=== PATIENT | female | born 2000 | race African-American/Black ===

== ENCOUNTER 2019-01-22 11:10 | Emergency (ER) | payer OTHER ==
[~2019-01-22] VITALS: Ht 170.2 cm; Wt 81.6 kg
[2019-01-22 11:14] VITALS: Ht 170.2 cm; Wt 81.6 kg
[2019-01-22] MEDS ORDERED: DEPAKOTE ER250 M1 PO (11:55)
[2019-01-22] MEDS ORDERED: ADOINT (11:56)
[2019-01-22] MEDS ORDERED: SEROQUEL400 M1 PO (11:56)
[2019-01-22 11:58] LABS: ALBUMIN 3.8 g/dL (3.4-5.0); ALKALINE PHOSPHATASE 79 U/L (46-116); ALT/SGPT 23 U/L (14-59); AST/SGOT 21 U/L (15-37); BILIRUBIN TOTAL 0.6 mg/dL (0.20-1.00); CARBON DIOXIDE 28.3 mmol/L (21-32); CHLORIDE SERUM 106 mmol/L (98-107); CREATININE SERUM 0.8 mg/dL (0.6-1.0); GFR1 > 60 mL/min; POTASSIUM SERUM 3.6 mmol/L (3.5-5.1); SODIUM SERUM 141 mmol/L (136-145); TOTAL PROTEIN, SERUM 7.7 g/dL (6.4-8.2)
[2019-01-22 12:13] LABS: CALCIUM 8.7 mg/dL (8.5-10.1); GLUCOSE SERUM 91 mg/dL (74-106)
[2019-01-22 12:32] LABS: BASOPHIL % 0.5 % (0-2); PLATELET COUNT 202 x10^3mcL (130-400); RED CELL DISTRIBUTION WIDTH 14.1 % (11.5-14.5)
[2019-01-22 12:40] LABS: microscopic required? YES; urine erythrocyte TRACE (NEGATIVE)
[2019-01-22 12:47] LABS: AMPHETAMINE QUAL UR NONE DETECTED (See below)
[2019-01-22 13:46] VITALS: BP 120/80
== END 2019-01-22 13:46 | disposition home or self-care (01) ==
LOC: ED 11:10
PROVIDERS: Emergency Medicine
DX: R41.0 Disorientation, unspecified (principal); R50.9 Fever, unspecified
CPT/HCPCS: 36415; G0480; Q0092